=== PATIENT | female | born 1990 | race Two or more races ===

== ENCOUNTER 2023-05-28 13:26 | Emergency (ER) | payer MEDICAID ==
[~2023-05-28] VITALS: Ht 160 cm; Wt 54.4 kg
[2023-05-28 13:43] VITALS: BP 123/68; TEMP 97.7
[2023-05-28] MEDS ORDERED: SILV20CR13 TP (14:46)
[2023-05-28] MEDS ORDERED: SILVER SULFADIAZINE CREAM 25 GM TUBE ONE (14:48)
[2023-05-28] MEDS ORDERED: SILVER SULFADIAZINE CREAM 25 GM TUBE TP ONE (15:00)
[2023-05-28 17:33] VITALS: O2SAT 100
== END 2023-05-28 17:34 | disposition home or self-care (01) ==
LOC: ER 13:31
DX: T23.051A Burn of unspecified degree of right palm, initial encounter (principal); Z60.2 Problems related to living alone; W40.8XXA Explosion of other specified explosive materials, initial encounter; Y93.89 Activity, other specified; Y92.89 Other specified places as the place of occurrence of the external cause; Y99.8 Other external cause status